=== PATIENT | male | born 1945 | race Caucasian/White ===

== ENCOUNTER 2023-09-16 08:04 | Emergency (ER) | payer OTHER, MEDICAID ==
[~2023-09-16] VITALS: Ht 172.7 cm; Wt 66.7 kg
[2023-09-16 08:13] VITALS: TEMP 98
[2023-09-16] MEDS ORDERED: PANTOPRAZOLE 40 MG VIAL ONE (08:49)
[2023-09-16] MEDS: PANTOPRAZOLE 80 MG in IV NS 0.9% 100 ML IV ONE (08:52)
[2023-09-16 09:03] LABS: INR 1.08 (0.91-1.10); PARTIAL THROMBOPLASTIN TIME 31.3 SEC (24.3-34.3); PROTHROMBIN TIME 11.4 SECS (9.2-11.1)
[2023-09-16 09:09] LABS: LACTIC ACID 3.8 mmol/L (0.4-2.0)
[2023-09-16 09:56] LABS: BASOPHILS # (AUTO) 0.1 K/uL (0.0-0.2); BASOPHILS % (AUTO) 0.4 % (0.0-2.0); EOSINOPHILS % (AUTO) 0.2 % (0.0-6.0); HEMATOCRIT 34 % (39-51); LYMPHOCYTES # (AUTO) 0.9 K/uL (0.8-4.8); LYMPHOCYTES % (AUTO) 6.6 % (20.0-44.0); MEAN CORPUSCULAR HEMOGLOBIN 27 PG (26.0-33.0); MEAN CORPUSCULAR HGB CONC 33 g/dl (31.0-36.0); MEAN CORPUSCULAR VOLUME 82 fL (80-96); MONOCYTES # (AUTO) 0.9 K/uL (0.1-1.30); MONOCYTES % (AUTO) 6.6 % (2.0-12.0); NEUTROPHILS # (AUTO) 12.2 K/uL (1.8-8.9); NEUTROPHILS % (AUTO) 86.2 % (43.0-81.0); PLATELET COUNT (AUTO) 328 K/uL (150-450); RED BLOOD CELL COUNT(AUTO) 4.11 MIL/uL (4.5-6.0); RED CELL DISTRIBUTION WIDTH 14.4 % (11.5-15.0); WHITE BLOOD COUNT (AUTO) 14.1 K/uL (4.3-11.0)
[2023-09-16] MEDS ORDERED: POLY17PO4 PO (09:59)
[2023-09-16] MEDS ORDERED: FERR325T23 PO (09:59)
[2023-09-16] MEDS ORDERED: ATOR40TA PO (09:59)
[2023-09-16] MEDS ORDERED: CHOL100062 PO (09:59)
[2023-09-16] MEDS ORDERED: INSU100V39 SQ (09:59)
[2023-09-16] MEDS ORDERED: MULT-213 PO (09:59)
[2023-09-16] MEDS ORDERED: METF-440 PO (09:59)
[2023-09-16] MEDS ORDERED: ASCO-352 PO (09:59)
[2023-09-16] MEDS ORDERED: LACT10SO58 PO (09:59)
[2023-09-16] MEDS ORDERED: ASPI-1420 PO (09:59)
[2023-09-16] MEDS ORDERED: MAGN400O6 PO (09:59)
[2023-09-16] MEDS ORDERED: CALC-883 PO (09:59)
[2023-09-16] MEDS ORDERED: NA P133E RC (09:59)
[2023-09-16] MEDS ORDERED: DAPA5TAB PO (09:59)
[2023-09-16] MEDS ORDERED: HYDR-4076 PO (09:59)
[2023-09-16] MEDS ORDERED: PANT40TA49 PO (09:59)
[2023-09-16] MEDS ORDERED: SERT50TA PO (09:59)
[2023-09-16] MEDS ORDERED: SENN8.6T19 PO (09:59)
[2023-09-16] MEDS ORDERED: AMIN30LI66 PO (09:59)
[2023-09-16] MEDS ORDERED: DOCU100C36 PO (09:59)
[2023-09-16 10:04] LABS: CALCIUM, SERUM 9.6 mg/dL (8.5-10.1); CARBON DIOXIDE 27 mmol/L (21-32); CHLORIDE 102 mmol/L (98-107); CREATININE 1.4 mg/dL (0.6-1.3); GLUCOSE 217 mg/dL (74-106); POTASSIUM 4.8 mmol/L (3.5-5.1); SODIUM SERUM 137 mmol/L (136-145); UREA NITROGEN, BLOOD 37 mg/dL (7-18)
[2023-09-16 10:10] LABS: ALANINE AMINOTRANSFERASE 17 U/L (12-78); ALBUMIN 3.4 g/dL (3.4-5.0); ASPARTATE AMINOTRANSFERASE 10 U/L (15-37); BILIRUBIN,TOTAL 0.5 mg/dL (0.2-1.0); LIPASE 32 U/L (16-77); TOTAL PROTEIN, SERUM 7.8 g/dL (6.4-8.2)
[2023-09-16 10:32] LABS: ALKALINE PHOSPHATASE 120 U/L (46-116)
[2023-09-16] MEDS: PANTOPRAZOLE 80 MG in IV NS 0.9% 500 ML IV ONE (10:34)
[2023-09-16] MEDS ORDERED: IOHEXOL-300 100 ML VIAL IV ONE (10:52)
[2023-09-16] MEDS ORDERED: CT SWABBABLE VALVE TRANS SET 1 EA INFUS.SET MC ONE (10:52)
[2023-09-16] MEDS ORDERED: IV NS 0.9% 250 ML IV ONE (10:52)
[2023-09-16 11:48] LABS: BASOPHILS # (AUTO) 0.1 K/uL (0.0-0.2); BASOPHILS % (AUTO) 0.5 % (0.0-2.0); EOSINOPHILS % (AUTO) 0.2 % (0.0-6.0); HEMATOCRIT 34 % (39-51); HEMOGLOBIN 10.9 g/dL (13.5-17.5); LYMPHOCYTES # (AUTO) 1.1 K/uL (0.8-4.8); LYMPHOCYTES % (AUTO) 9.2 % (20.0-44.0); MEAN CORPUSCULAR HEMOGLOBIN 27 PG (26.0-33.0); MEAN CORPUSCULAR HGB CONC 32 g/dl (31.0-36.0); MEAN CORPUSCULAR VOLUME 83 fL (80-96); MONOCYTES % (AUTO) 8.1 % (2.0-12.0); PLATELET COUNT (AUTO) 320 K/uL (150-450); RED BLOOD CELL COUNT(AUTO) 4.07 MIL/uL (4.5-6.0); RED CELL DISTRIBUTION WIDTH 14.1 % (11.5-15.0); WHITE BLOOD COUNT (AUTO) 12.2 K/uL (4.3-11.0)
[2023-09-16 12:11] LABS: BILIRUBIN,DIRECT 0.1 mg/dL (0.0-0.2)
[2023-09-16 12:19] LABS: LACTIC ACID REFLEX 3.9 mmol/L (0.4-1.9)
[2023-09-16] MEDS ORDERED: PIPERACI/TAZO 3.375GM/D5W 50ML PB IV ONE (12:31)
[2023-09-16] MEDS: PIPERACILLIN /TAZOBACTAM 3.375 G in IV D5W 50 ML IV ONE (12:48)
[2023-09-16] MEDS: IV NS 0.9% 1,000 ML BAG IV ONE (12:48)
[2023-09-16 16:32] VITALS: BP 131/57; O2SAT 97
== END 2023-09-16 16:40 ==
LOC: ER 08:06
DX: K92.0 Hematemesis (principal); E87.20 Acidosis, unspecified; D64.9 Anemia, unspecified; F03.90 Unspecified dementia, unspecified severity, without behavioral disturbance, psychotic disturbance, mood disturbance, and anxiety; Z79.899 Other long term (current) drug therapy
CPT/HCPCS: 99291; 74177; 96365; 96366 ×2; 71045; 96368; 93005; 96376; 82248; 85025 ×2; 83605 ×2; 83690; 36415; 80053; 84484; 85730; 86850; J2543 ×2; J7060; J7030 ×2; J7050; J7040; C9113 ×3; A4223; Q9967

== ENCOUNTER 2025-01-13 15:37 | Inpatient (IN) | payer MEDICARE, MEDICAID ==
[~2025-01-13] VITALS: Ht 170.2 cm; Wt 61.7 kg
[~2025-01-13 15:37] MED LIST: AMIN30LI66 PO; ASCO-352 PO; ASPI-1420 PO; ATOR40TA PO; CALC-883 PO; CHOL100062 PO; DAPA5TAB PO; DOCU100C36 PO; FERR325T23 PO; HYDR-4076 PO; INSU100V39 SQ; LACT10SO58 PO; MAGN400O6 PO; METF-440 PO; MULT-213 PO; NA P133E RC; PANT40TA49 PO; POLY17PO4 PO; SENN8.6T19 PO; SERT50TA PO
[2025-01-13] MEDS: CEFEPIME 1 GM in IV D5W 50 ML IV ONE (16:00)
[2025-01-13] MEDS: IV NS 0.9% 1,000 ML BAG IV ONE (16:00)
[2025-01-13 16:09] LABS: PLATELET COUNT (AUTO) 293 K/uL (150-450); RED BLOOD CELL COUNT(AUTO) 3.84 MIL/uL (4.5-6.0); RED CELL DISTRIBUTION WIDTH 14.0 % (11.5-15.0); WHITE BLOOD COUNT (AUTO) 9.9 K/uL (4.3-11.0)
[2025-01-13 16:21] LABS: INR 1.08 (0.91-1.10)
[2025-01-13 16:28] LABS: LACTIC ACID 4.1 mmol/L (0.4-2.0)
[2025-01-13] MEDS ORDERED: ZINC50TA69 PO (16:29)
[2025-01-13] MEDS ORDERED: ACET-868 PO ×2 (16:29)
[2025-01-13] MEDS ORDERED: ACET-2030 PO (16:29)
[2025-01-13] MEDS ORDERED: GUAI100S69 PO (16:29)
[2025-01-13 16:30] LABS: CALCIUM, SERUM 9.0 mg/dL (8.5-10.1); CREATININE 1.3 mg/dL (0.6-1.3); SODIUM SERUM 139 mmol/L (136-145); UREA NITROGEN, BLOOD 29 mg/dL (7-18)
[2025-01-13 16:35] LABS: ASPARTATE AMINOTRANSFERASE 10 U/L (15-37); TOTAL PROTEIN, SERUM 6.9 g/dL (6.4-8.2)
[2025-01-13] MEDS: VANCOMYCIN 1 GM in IV D5W 250 ML IV ONE (16:45)
[2025-01-13 17:47] LABS: APPEARANCE,URINE CLEAR (CLEAR); BLOOD, URINE NEGATIVE Ery/uL (NEGATIVE); LEUKOCYTE ESTERASE ,URINE NEGATIVE (NEGATIVE); NITRITE, URINE NEGATIVE (NEGATIVE); UGLUCOSE 3+ mg/dL (NEGATIVE)
[2025-01-13 17:51] LABS: ADD URINE CULTURE NO; SQUAMOUS EPITHELIAL CELL,UR None Seen /HPF (None Seen)
[2025-01-13 19:00] VITALS: BP 132/64; TEMP 97.8; O2SAT 97
[2025-01-13] MEDS ORDERED: Z GUARD REMEDY 4 OZ OINT TP PRN (19:00)
[2025-01-13] MEDS ORDERED: MAGNESIUM HYDROXIDE 30 ML UDC PO PRN (19:00)
[2025-01-13] MEDS ORDERED: ONDANSETRON HCL/PF 4 MG/2 ML VIAL IVP PRN (19:00)
[2025-01-13] MEDS ORDERED: MAG HYDROX/AL HYDROX/SIMETH 30 ML UDC PO PRN (19:00)
[2025-01-13] MEDS ORDERED: ACETAMINOPHEN 325 MG TABLET PO PRN (19:00)
[2025-01-13] MEDS ORDERED: DOSING PER PHARMACY-VANCOMYCIN IV XX PRN (19:00)
[2025-01-13] MEDS: ENOXAPARIN SODIUM 40 MG/0.4 ML DISP.SYRIN SQ SCH (19:11)
[2025-01-13 20:00] VITALS: BP 123/57; TEMP 97.2; O2SAT 98
[2025-01-13] MEDS: IV NS 0.9% 1,000 ML IV SCH (20:20)
[2025-01-14] MEDS: VANCOMYCIN 500 MG in IV D5W 100ml IV SCH (03:32)
[2025-01-14] MEDS: PANTOPRAZOLE 40 MG TABLET.DR PO SCH (06:44)
[2025-01-14 07:06] LABS: CALCIUM, SERUM 8.3 mg/dL (8.5-10.1); CREATININE 1.0 mg/dL (0.6-1.3); PHOSPHORUS 2.6 mg/dL (2.5-4.9); SODIUM SERUM 142.0 mmol/L (136-145); UREA NITROGEN, BLOOD 21.0 mg/dL (7-18)
[2025-01-14 07:22] LABS: PLATELET COUNT (AUTO) 236 K/uL (150-450); RED BLOOD CELL COUNT(AUTO) 3.55 MIL/uL (4.5-6.0); RED CELL DISTRIBUTION WIDTH 14.5 % (11.5-15.0); WHITE BLOOD COUNT (AUTO) 8.3 K/uL (4.3-11.0)
[2025-01-14 08:00] VITALS: BP 112/53; TEMP 97.9; O2SAT 99
[2025-01-14] MEDS: CEFEPIME 2 GM in IV D5W 100 ML IV SCH (09:45)
[2025-01-14] MEDS: MAGNESIUM OXIDE 400 MG TABLET PO ONE (09:45)
[2025-01-14] MEDS ORDERED: DEXTROSE 50%-WATER 50 ML DISP.SYRIN IV PRN (10:00)
[2025-01-14] MEDS: BLOOD SUGAR DIAGNOSTIC 1 EACH STRIP IN SCH (12:34)
[2025-01-14] MEDS: INSULIN REGULAR, HUMAN 100 UNIT/ML 3 ML VIAL SQ PRN (12:34)
[2025-01-14 16:00] VITALS: BP 128/73; TEMP 97.5; O2SAT 100
[2025-01-14] MEDS ORDERED: CEFEPIME 2 GM in IV D5W 100 ML IV SCH (16:00)
[2025-01-14] MEDS ORDERED: CEFEPIME 1 GM in IV D5W 50 ML IV SCH (16:00)
[2025-01-14] MEDS: VANCOMYCIN HCL 1.25 GM in IV D5W 250 ML IV SCH (17:29)
[2025-01-14 20:00] VITALS: BP 126/62; TEMP 97.5; O2SAT 96
== END 2025-01-14 21:10 | disposition short-term general hospital (02) | DRG 299 ==
LOC: ER 15:39 → MED 18:48
DX: E11.52 Type 2 diabetes mellitus with diabetic peripheral angiopathy with gangrene (principal); G93.41 Metabolic encephalopathy; R53.2 Functional quadriplegia; I69.351 Hemiplegia and hemiparesis following cerebral infarction affecting right dominant side; E87.20 Acidosis, unspecified; L03.115 Cellulitis of right lower limb; D68.59 Other primary thrombophilia; I70.261 Atherosclerosis of native arteries of extremities with gangrene, right leg; E11.621 Type 2 diabetes mellitus with foot ulcer; E83.42 Hypomagnesemia; I25.10 Atherosclerotic heart disease of native coronary artery without angina pectoris; Z74.01 Bed confinement status; I10 Essential (primary) hypertension; E78.5 Hyperlipidemia, unspecified; Z79.4 Long term (current) use of insulin; Z79.84 Long term (current) use of oral hypoglycemic drugs; Z95.1 Presence of aortocoronary bypass graft; F01.50 Vascular dementia, unspecified severity, without behavioral disturbance, psychotic disturbance, mood disturbance, and anxiety; Z89.422 Acquired absence of other left toe(s); L97.514 Non-pressure chronic ulcer of other part of right foot with necrosis of bone
CPT/HCPCS: 36415; 71045-TC; 73630-TC; 80048-TC; 80076-TC; 81001; 82962-TC; 83605-TC; 83735-TC; 84100-TC; 85025-TC; 85730-TC; 87040-TC; 87081-TC; 87086-TC; 92526; 92611; 93307-TC; A4223; A6403; G0378; J0692; J1650; J1815; J3373; J7030; J7060